=== PATIENT | female | born 1975 | race Caucasian/White ===

== ENCOUNTER 2017-07-26 10:29 | Outpatient (CLI) | payer BC ==
--- NOTE | 2017-07-27 07:28 | ULT ---
RIGHT UPPER QUADRANT ULTRASOUND 07/26/17 Ultrasonography of the right upper quadrant was performed for evaluation of pain. The liver is normal in appearance measuring about 14 cm in oblique sagittal length. No masses, dilated ducts, or other a cute changes were seen. Portal venous flow is towards the liver as expected. Gallbladder contains no signs of stones. At most, there may be a minimal amount of sludge within it. The gallbladder wall thi ckness was borderline at 2.5 mm, but it was not completely distended either. Common bile duct is 5 to 6 mm in caliber which is normal. The visible portions of the pancreas appear normal. The right kidne y was 11.6 cm in length and showed no mass or hydronephrosis. IMPRESSION: No definite acute right upper quadrant findings. Equivocal thickness of the gallbladder wall. POS: HOME
== END 2017-07-26 10:30 | disposition home or self-care (01) ==
LOC: BURULT 10:29
PROVIDERS: ATTEND Internal Medicine Gastroenterology
DX: K90.0 Celiac disease (principal); K21.9 Gastro-esophageal reflux disease without esophagitis; R10.13 Epigastric pain; R13.10 Dysphagia, unspecified
CPT/HCPCS: 76705

== ENCOUNTER 2018-01-29 17:56 | Emergency (ER) | payer BC ==
[2018-01-29 18:43] LABS: #Basophils 0.1 thou/uL (0.0-0.2); #Eosinphils 0.1 thou/uL (0.0-0.7); #Lymphocytes 2.4 thou/uL (1.20-3.40); #Monocytes 0.7 thou/uL (0.11-0.59); #Neutrophils 5.4 thou/uL (1.40-6.50); %Basophils 0.7 % (0.0-1.0); %Eosinophils 1.5 % (0.0-10.0); %Lymphocytes 27.5 % (21.0-51.0); %Monocytes 8.5 % (0.0-10.0); %Neutrophils 61.8 % (42.0-75.0); Hemoglobin 14.2 g/dL (12.0-16.0); Mean Corpuscular HGB CONC 36.3 g/dL (32.0-36.0); Mean Corpuscular Hemoglobin 31.2 pg (27.0-31.0); Mean Corpuscular Volume 85.9 fL (78.0-98.0); Mean Platelet Volume 6.2 fL (7.4-10.4); Platelet Count 340 thou/uL (130-400); RBC Distribution Width 12.5 % (11.5-14.5); Red Blood Cell (RBC) Count 4.55 mill/uL (4.20-5.40); White Blood Cell (WBC) Count 8.7 thou/uL (4.8-10.8)
[2018-01-29 18:56] LABS: Clarity Clear (Clear); Glucose, Urine (Dipstick) Negative (Negative); Leukocyte Negative (Negative); Nitrite Negative (Negative); Protein, Urine (Dipstick) Negative (Neg-Trace); Specific Gravity, Urine 1.006 (1.005-1.030); pH, Urine 6.5 (5.0-9.0)
[2018-01-29 18:57] LABS: Bilirubin Negative (Negative); Blood, Urine Trace (Negative); Urobilinogen 0.2 mg/dL (0.2-1.0)
[2018-01-29 18:59] LABS: ALT (SGPT) 36 U/L (8-55); AST (SGOT) 28 U/L (5-34); Albumin 4.9 g/dL (3.5-5.0); Alkaline Phosphatase 79 U/L (40-150); Anion Gap 15 mmol/L (10-20); BUN (Urea Nitrogen) 11 mg/dL (7.0-18.7); Bilirubin, Total 0.4 mg/dL (0.2-1.2); Calc. Creatinine Clearance 0 mL/min (70-130); Carbon Dioxide 25 mmol/L (22-29); Chloride 105 mmol/L (98-107); Estimated GFR-MDRD 86; Globulin 2.8 g/dL (2.4-3.5); Glucose 103 mg/dL (70-105); Potassium 3.8 mmol/L (3.5-5.1); Protein, Total 7.7 g/dL (6.0-8.3); Sodium 141 mmol/L (136-145)
[2018-01-29 19:01] LABS: Bacteria/HPF 1+ HPF (None Seen); Other Microscopic Description GLITTER CELLS; RBC/HPF 0-3 HPF (0-3); Squamous Epithelial 0-3 HPF (0-3); WBC/HPF 0-3 HPF (0-3)
[2018-01-29] MEDS ORDERED: Loperamide HCl 2 MG CAP PO SCH (19:15)
== END 2018-01-29 19:38 | disposition home or self-care (01) ==
LOC: BURERS 17:56
DX: R10.13 Epigastric pain (principal); G43.909 Migraine, unspecified, not intractable, without status migrainosus; Z79.899 Other long term (current) drug therapy
CPT/HCPCS: 80053; 81003; 81015; 85025; 86677; 87086; 96374; 96375

== ENCOUNTER 2018-12-30 10:36 | Emergency (ER) | payer BC ==
[2018-12-30 11:42] LABS: ALT (SGPT) 38 U/L (8-55); AST (SGOT) 31 U/L (5-34); Albumin 4.2 g/dL (3.5-5.0); Alkaline Phosphatase 117 U/L (40-150); Anion Gap 13 mmol/L (10-20); BUN (Urea Nitrogen) 9 mg/dL (7.0-18.7); Bilirubin, Total 0.3 mg/dL (0.2-1.2); Calc. Creatinine Clearance 0 mL/min (70-130); Calcium 9.2 mg/dL (7.8-10.44); Carbon Dioxide 18 mmol/L (22-29); Chloride 112 mmol/L (98-107); Estimated GFR-MDRD 89; Globulin 2.2 g/dL (2.4-3.5); Glucose 99 mg/dL (70-105); Potassium 3.4 mmol/L (3.5-5.1); Protein, Total 6.4 g/dL (6.0-8.3); Sodium 140 mmol/L (136-145)
[2018-12-30 11:44] LABS: Hemoglobin 9.6 g/dL (12.0-16.0); Mean Corpuscular HGB CONC 33.3 g/dL (32.0-36.0); Mean Corpuscular Hemoglobin 31.6 pg (27.0-31.0); Mean Platelet Volume 6.5 fL (7.4-10.4); Platelet Count 92 thou/uL (130-400); RBC Distribution Width 14.7 % (11.5-14.5); Red Blood Cell (RBC) Count 3.04 mill/uL (4.20-5.40); White Blood Cell (WBC) Count 3.8 thou/uL (4.8-10.8)
[2018-12-30] MEDS ORDERED: cefTRIAXone\\ROCEPHIN 2 GM VIAL ONE (11:47)
[2018-12-30] MEDS ORDERED: Sodium Chloride 0.9% 100 ML ONE (11:48)
[2018-12-30 11:50] LABS: Clarity Clear (Clear)
[2018-12-30 11:51] LABS: Bilirubin Negative (Negative); Glucose, Urine (Dipstick) Negative (Negative); Leukocyte Negative (Negative); Nitrite Negative (Negative); Protein, Urine (Dipstick) Negative (Neg-Trace); Urobilinogen 0.2 mg/dL (Less than 2)
[2018-12-30 11:52] LABS: Blood, Urine Negative (Negative)
[2018-12-30 11:59] LABS: Band 49 % (5-11); Lymphocytes 5 % (21-51); MDiff Complete? YES; Monocytes 14 % (0-10); Neutrophil 27 % (42-75); Reactive Lymphocytes 4 % (0-10); Reflex for Review?? NO
--- NOTE | 2018-12-30 14:46 | RAD ---
PORTABLE CHEST: DATE: 12/30/2018. FINDINGS: An AP portable film at 1057 is compared with a 10/25/2018 study. The heart is normal in size. The lungs are clear. There is no sign of pneumonia or pleural effusion . No pulmonary masses are seen. The mediastinum appears normal. A MediPort catheter remains in sadaf ce with its tip in the vicinity of the distal superior vena cava. IMPRESSION: No acute thoracic finding. POS: HOME
== END 2018-12-30 12:40 | disposition home or self-care (01) ==
LOC: BURERS 10:36
DX: R50.9 Fever, unspecified (principal); G43.909 Migraine, unspecified, not intractable, without status migrainosus
CPT/HCPCS: 71045; 80053; 81003; 83605; 85025; 87040; 87086; 96365; J0696; J3490

== ENCOUNTER 2019-11-15 13:37 | Outpatient (CLI) | payer BC ==
[2019-11-15 14:19] LABS: INR-International Normal Ratio 1.1; PTT 24.2 SEC (22.9-36.1); Prothrombin Time 13.7 sec (12.0-14.7)
[2019-11-15 14:28] LABS: #Eosinphils 0.1 thou/uL (0.0-0.7); #Lymphocytes 1.3 thou/uL (1.20-3.40); #Monocytes 0.5 thou/uL (0.11-0.59); #Neutrophils 3.1 thou/uL (1.40-6.50); %Basophils 0.7 % (0.0-1.0); %Eosinophils 1.4 % (0.0-10.0); %Lymphocytes 25.2 % (21.0-51.0); %Monocytes 9.7 % (0.0-10.0); %Neutrophils 62.9 % (42.0-75.0); Hemoglobin 12.6 g/dL (12.0-16.0); Mean Corpuscular HGB CONC 31.7 g/dL (32.0-36.0); Mean Corpuscular Hemoglobin 32.3 pg (27.0-31.0); Mean Platelet Volume 7.7 fL (7.4-10.4); Platelet Count 208 thou/uL (130-400); RBC Distribution Width 11.2 % (11.5-14.5)
[2019-11-15 14:51] LABS: ALT (SGPT) 19 U/L (8-55); AST (SGOT) 22 U/L (5-34); Albumin 4.2 g/dL (3.5-5.0); Alkaline Phosphatase 105 U/L (40-110); Anion Gap 15 mmol/L (10-20); BUN (Urea Nitrogen) 9 mg/dL (7.0-18.7); Bilirubin, Total 0.7 mg/dL (0.2-1.2); Calc. Creatinine Clearance 0 mL/min (70-130); Calcium 9.1 mg/dL (7.8-10.44); Carbon Dioxide 20 mmol/L (22-29); Chloride 110 mmol/L (98-107); Estimated GFR-MDRD 83; Globulin 2.4 g/dL (2.4-3.5); Glucose 79 mg/dL (70-105); Potassium 3.9 mmol/L (3.5-5.1); Protein, Total 6.6 g/dL (6.0-8.3); Sodium 141 mmol/L (136-145)
--- NOTE | 2019-11-15 17:20 | RAD ---
CHEST TWO VIEWS: 11/15/19 Comparison is made with a 12/30/18 study. The heart is normal in size and the lungs are clear. No infiltrate or effusion was seen. There is no vascular congestion or edema. A Mediport catheter remains in place as usual. IMPRESSION: No acute thoracic finding. POS: HOME
== END 2019-11-15 13:38 | disposition home or self-care (01) ==
LOC: BURRAD 13:37
DX: Z08 Encounter for follow-up examination after completed treatment for malignant neoplasm (principal); Z85.3 Personal history of malignant neoplasm of breast; Z42.1 Encounter for breast reconstruction following mastectomy
CPT/HCPCS: 36415; 71046; 80053; 85025; 85610; 85730

== ENCOUNTER 2020-10-05 08:25 | Outpatient (CLI) | payer BC ==
[2020-10-05 08:51] LABS: Hemoglobin 13.2 g/dL (12.0-16.0); Mean Corpuscular HGB CONC 33.5 g/dL (32.0-36.0); Mean Corpuscular Volume 98.6 fL (78.0-98.0); Platelet Count 221 thou/uL (130-400); RBC Distribution Width 11.7 % (11.5-14.5); Red Blood Cell (RBC) Count 3.99 mill/uL (4.20-5.40); White Blood Cell (WBC) Count 5.3 thou/uL (4.8-10.8)
[2020-10-05 09:03] LABS: ALT (SGPT) 23 U/L (8-55); AST (SGOT) 22 U/L (5-34); Alkaline Phosphatase 86 U/L (40-110); Anion Gap 13 mmol/L (10-20); BUN (Urea Nitrogen) 16 mg/dL (7.0-18.7); Bilirubin, Total Less than 0.2 mg/dL (0.2-1.2); Calc. Creatinine Clearance 0 mL/min (70-130); Calcium 8.4 mg/dL (7.8-10.44); Carbon Dioxide 24 mmol/L (22-29); Chloride 111 mmol/L (98-107); Globulin 2.4 g/dL (2.4-3.5); Glucose 100 mg/dL (70-105); Potassium 4.6 mmol/L (3.5-5.1); Protein, Total 6.4 g/dL (6.0-8.3); Sodium 143 mmol/L (136-145)
== END 2020-10-05 08:26 | disposition home or self-care (01) ==
LOC: BUREKG 08:25
DX: N65.1 Disproportion of reconstructed breast (principal); N65.0 Deformity of reconstructed breast; Z85.3 Personal history of malignant neoplasm of breast
CPT/HCPCS: 36415; 80053; 85027; 93005; 93010

== ENCOUNTER 2021-11-27 09:29 | Outpatient (CLI) | payer BC | END 2021-11-27 09:30 | disposition home or self-care (01) | LOC: BURRAD 09:29 | PROVIDERS: ATTEND Internal Medicine Rheumatology | DX: M46.1 Sacroiliitis, not elsewhere classified (principal) | CPT/HCPCS: 72202 ==

== ENCOUNTER 2022-06-04 15:36 | Emergency (ER) | payer BC ==
[2022-06-04 16:12] LABS: #Basophils 0.1 thou/uL (0.0-0.2); #Eosinphils 0.1 thou/uL (0.0-0.7); #Lymphocytes 1.5 thou/uL (1.20-3.40); #Monocytes 0.7 thou/uL (0.11-0.59); #Neutrophils 5.5 thou/uL (1.40-6.50); %Basophils 0.7 % (0.0-1.0); %Eosinophils 1.4 % (0.0-10.0); %Lymphocytes 18.8 % (21.0-51.0); %Monocytes 8.6 % (0.0-10.0); %Neutrophils 70.5 % (42.0-75.0); Hemoglobin 13.4 g/dL (12.0-16.0); Mean Corpuscular HGB CONC 33.3 g/dL (32.0-36.0); Mean Corpuscular Hemoglobin 33.8 pg (27.0-31.0); Platelet Count 276 10x3/uL (130-400); RBC Distribution Width 12.2 % (11.5-14.5); Red Blood Cell (RBC) Count 3.96 mill/uL (4.20-5.40); White Blood Cell (WBC) Count 7.7 10x3/uL (4.8-10.8)
[2022-06-04] MEDS ORDERED: Lorazepam 2 MG/ML VIAL ONE (16:19)
[2022-06-04 16:32] LABS: ALT (SGPT) 23 U/L (8-55); AST (SGOT) 18 U/L (5-34); Albumin 4.1 g/dL (3.5-5.0); Alkaline Phosphatase 60 U/L (40-110); Anion Gap 11 mmol/L (10-20); BUN (Urea Nitrogen) 20 mg/dL (7.0-18.7); Bilirubin, Total 0.3 mg/dL (0.2-1.2); CK (CPK) 44 U/L (29-168); Calc. Creatinine Clearance 0 mL/min (70-130); Calcium 9.1 mg/dL (7.8-10.44); Carbon Dioxide 24 mmol/L (22-29); Chloride 109 mmol/L (98-107); Estimated GFR 78; Globulin 2.5 g/dL (2.4-3.5); Glucose 102 mg/dL (70-105); Magnesium 2.1 mg/dL (1.6-2.6); Potassium 3.5 mmol/L (3.5-5.1); Protein, Total 6.6 g/dL (6.0-8.3); Sodium 140 mmol/L (136-145)
== END 2022-06-04 16:37 | disposition home or self-care (01) ==
LOC: BURERS 15:36
DX: R00.2 Palpitations (principal)
CPT/HCPCS: 71045; 80053; 82550; 83735; 83880; 84484; 85025; 85379; 93005; 96374; J2060